=== PATIENT | female | born 1950 | race Caucasian/White ===

== ENCOUNTER 2020-08-11 10:13 | Inpatient (IN) | payer MEDICARE ==
[2020-08-11] MEDS ORDERED: SODIUM CHLORIDE 0.9% 500 ML 500 ML IV STA (10:38)
--- NOTE | 2020-08-11 10:49 | ED ---
General Adult HPI - General Stated complaint: weakness Time Seen by Provider: 08/11/20 10:15 Source: patient, RN notes reviewed, old records reviewed - History of Present Illness Initial comments: This is a 70-year-old female who presents to the emergency department after having fallen in the shower. Patient does not remember the event. Patient denies any head pain patient denies any neck pain. Patient denies any back or chest pain. Patient denies any pain anywhere. Patient does not remember she fell or passed out. Patient denies any difficulty breathing shortness of breath. Patient any recent fever chills or cough. When EMS arrived the patient's pulse ox was in the low 80s and 70s. Patient was placed on oxygen. Currently patient on room air goes into the high 80s. Patient denies any recent vomiting or diarrhea. - Related Data Home Medications Medication Instructions Recorded Confirmed Alendronate Sodium [Fosamax] 70 mg PO Q7D 08/11/20 08/11/20 Atorvastatin [Lipitor] 20 mg PO HS 08/11/20 08/11/20 Cyclobenzaprine [Flexeril] 10 mg PO TID PRN 08/11/20 08/11/20 Dicyclomine [Bentyl] 20 mg PO QID PRN 08/11/20 08/11/20 Losartan [Cozaar] 25 mg PO DAILY 08/11/20 08/11/20 Meloxicam [Mobic] 15 mg PO DAILY 08/11/20 08/11/20 Allergies Allergy/AdvReac Type Severity Reaction Status Date / Time No Known Allergies Allergy Verified 08/11/20 11:28 Review of Systems ROS Statement: Those systems with pertinent positive or pertinent negative responses have been documented in the HPI. ROS Other: All systems not noted in ROS Statement are negative. Past Medical History Past Medical History: Eye Disorder, Osteoarthritis (OA) Additional Past Medical History / Comment(s): BILAT CATARACTS History of Any Multi-Drug Resistant Organisms: None Reported Past Surgical History: Hysterectomy, Joint Replacement Additional Past Surgical History / Comment(s): left knee, REVISION TOTAL LT KNEE 10-11-13 Past Anesthesia/Blood Transfusion Reactions: No Reported Reaction Past Psychological History: No Psychological Hx Reported Past Alcohol Use History: Occasional Additional Past Alcohol Use History / Comment(s): QUIT SMOKING 2006, SMOKED 1 1/2 PPD Past Drug Use History: None Reported - Past Family History Sister(s) Family Medical History: Cancer General Exam - General Exam Comments Initial Comments: GENERAL: Patient is well-developed and well-nourished. Patient is nontoxic and well- hydrated and is in mild distress. ENT: Neck is soft and supple. No significant lymphadenopathy is noted. Oropharynx is clear. Moist mucous membranes. Neck has full range of motion without eliciting any pain. EYES: The sclera were anicteric and conjunctiva were pink and moist. Extraocular movements were intact and pupils were equal round and reactive to light. Eyelids were unremarkable. PULMONARY: Unlabored respirations. Good breath sounds bilaterally. Patient has coarse crackles bilateral lung bases CARDIOVASCULAR: There is a regular rate and rhythm without any murmurs gallops or rubs. ABDOMEN: Soft and nontender with normal bowel sounds. No palpable organomegaly was noted. There is no palpable pulsatile mass. SKIN: Skin is clear with no lesions or rashes and otherwise unremarkable. NEUROLOGIC: Patient is alert and oriented x3. Cranial nerves II through XII are grossly intact. Motor and sensory are also intact. Normal speech, volume and content. Symmetrical smile. MUSCULOSKELETAL: Normal extremities with adequate strength and full range of motion. No lower extremity swelling or edema. No calf tenderness. LYMPHATICS: No significant lymphadenopathy is noted PSYCHIATRIC: Normal psychiatric evaluation. Course Vital Signs 08/11/20 10:40 Temperature 98.4 F Pulse Rate 86 Respiratory 26 H Rate Blood Pressure 171/84 O2 Sat by Pulse 88 L Oximetry Medical Decision Making - Medical Decision Making EKG shows normal sinus rhythm at 79 bpm WA interval 164 QRS is 102 QT interval 424 QTC is 486. Patient's EKG shows no ST segment elevation or depression. X-ray showed some pneumonitis consistent COVID pneumonia. I think the patient off the oxygen and the patient said it 87-88. I spoke with some physicians he agreed to admit the patient to the patient wrote admitting orders - Lab Data Result diagrams: 08/11/20 10:42 08/11/20 10:42 Lab Results 08/11/20 08/11/20 08/11/20 Range/Units 10:42 10:42 10:42 WBC 3.9 (3.8-10.6) k/uL RBC 4.79 (3.80-5.40) m/uL Hgb 13.9 (11.4-16.0) gm/dL Hct 40.6 (34.0-46.0) % MCV 84.7 (80.0-100.0) fL MCH 29.1 (25.0-35.0) pg MCHC 34.3 (31.0-37.0) g/dL RDW 13.1 (11.5-15.5) % Plt Count 226 (150-450) k/uL MPV 7.2 Neutrophils % 72 % Lymphocytes % 16 % Monocytes % 6 % Eosinophils % 0 % Basophils % 1 % Neutrophils # 2.8 (1.3-7.7) k/uL Lymphocytes # 0.6 L (1.0-4.8) k/uL Monocytes # 0.2 (0-1.0) k/uL Eosinophils # 0.0 (0-0.7) k/uL Basophils # 0.1 (0-0.2) k/uL PT 10.0 (9.0-12.0) sec INR 0.9 (<1.2) APTT 19.5 L (22.0-30.0) sec Sodium 141 (137-145) mmol/L Potassium 3.6 (3.5-5.1) mmol/L Chloride 105 (98-107) mmol/L Carbon Dioxide 23 (22-30) mmol/L Anion Gap 13 mmol/L BUN 15 (7-17) mg/dL Creatinine 0.54 (0.52-1.04) mg/dL Est GFR (CKD-EPI)AfAm >90 (>60 ml/min/1.73 sqM) Est GFR (CKD-EPI)NonAf >90 (>60 ml/min/1.73 sqM) Glucose 108 H (74-99) mg/dL Calcium 9.3 (8.4-10.2) mg/dL Magnesium 1.7 (1.6-2.3) mg/dL Total Bilirubin 1.0 (0.2-1.3) mg/dL AST 54 H (14-36) U/L ALT 27 (4-34) U/L Alkaline Phosphatase 101 (38-126) U/L Troponin I (0.000-0.034) ng/mL Total Protein 7.1 (6.3-8.2) g/dL Albumin 4.0 (3.5-5.0) g/dL Influenza Type A (PCR) (Not Detectd) Influenza Type B (PCR) (Not Detectd) RSV (PCR) (Not Detectd) SARS-CoV-2 (PCR) (Not Detectd) 08/11/20 08/11/20 Range/Units 10:42 10:42 WBC (3.8-10.6) k/uL RBC (3.80-5.40) m/uL Hgb (11.4-16.0) gm/dL Hct (34.0-46.0) % MCV (80.0-100.0) fL MCH (25.0-35.0) pg MCHC (31.0-37.0) g/dL RDW (11.5-15.5) % Plt Count (150-450) k/uL MPV Neutrophils % % Lymphocytes % % Monocytes % % Eosinophils % % Basophils % % Neutrophils # (1.3-7.7) k/uL Lymphocytes # (1.0-4.8) k/uL Monocytes # (0-1.0) k/uL Eosinophils # (0-0.7) k/uL Basophils # (0-0.2) k/uL PT (9.0-12.0) sec INR (<1.2) APTT (22.0-30.0) sec Sodium (137-145) mmol/L Potassium (3.5-5.1) mmol/L Chloride (98-107) mmol/L Carbon Dioxide (22-30) mmol/L Anion Gap mmol/L BUN (7-17) mg/dL Creatinine (0.52-1.04) mg/dL Est GFR (CKD-EPI)AfAm (>60 ml/min/1.73 sqM) Est GFR (CKD-EPI)NonAf (>60 ml/min/1.73 sqM) Glucose (74-99) mg/dL Calcium (8.4-10.2) mg/dL Magnesium (1.6-2.3) mg/dL Total Bilirubin (0.2-1.3) mg/dL AST (14-36) U/L ALT (4-34) U/L Alkaline Phosphatase (38-126) U/L Troponin I <0.012 (0.000-0.034) ng/mL Total Protein (6.3-8.2) g/dL Albumin (3.5-5.0) g/dL Influenza Type A (PCR) Not Detected (Not Detectd) Influenza Type B (PCR) Not Detected (Not Detectd) RSV (PCR) Not Detected (Not Detectd) SARS-CoV-2 (PCR) Detected A (Not Detectd) Disposition Clinical Impression: Pneumonia due to COVID-19 virus, Hypoxia, Syncope, Fall Disposition: ADMITTED IP TO THIS HOSP Referrals: None,Stated [Primary Care Provider] - 1-2 days Time of Disposition: 12:05
[2020-08-11 10:54] LABS: Basophils # (A) 0.1 k/uL (0-0.2); Basophils % (A) 1 %; Eosinophils % (A) 0 %; HCT 40.6 % (34.0-46.0); HGB 13.9 gm/dL (11.4-16.0); Lymphocytes # (A) 0.6 k/uL (1.0-4.8); Lymphocytes % (A) 16 %; MCH 29.1 pg (25.0-35.0); MCHC 34.3 g/dL (31.0-37.0); MCV 84.7 fL (80.0-100.0); Mean Platelet Volume 7.2; Monocytes # (A) 0.2 k/uL (0-1.0); Monocytes % (A) 6 %; Neutrophils # (A) 2.8 k/uL (1.3-7.7); Neutrophils % (A) 72 %; Platelet Count 226 k/uL (150-450); RBC 4.79 m/uL (3.80-5.40); RDW 13.1 % (11.5-15.5); WBC 3.9 k/uL (3.8-10.6)
[2020-08-11 11:05] LABS: ALT 27 U/L (4-34); AST 54 U/L (14-36); African American GFR (CKD) >90 (>60 ml/min/1.73 sqM); Alkaline Phosphatase 101 U/L (38-126); Anion Gap 13 mmol/L; Blood Urea Nitrogen 15 mg/dL (7-17); Calcium 9.3 mg/dL (8.4-10.2); Carbon Dioxide 23 mmol/L (22-30); Chloride 105 mmol/L (98-107); Glucose 108 mg/dL (74-99); Magnesium 1.7 mg/dL (1.6-2.3); Non-African American GFR(CKD) >90 (>60 ml/min/1.73 sqM); Potassium 3.6 mmol/L (3.5-5.1); Sodium 141 mmol/L (137-145); Total Protein 7.1 g/dL (6.3-8.2)
[2020-08-11 11:13] LABS: INR 0.9 (<1.2)
--- NOTE | 2020-08-11 11:20 | XR ---
EXAMINATION TYPE: XR chest 1V portable DATE OF EXAM: 08/11/2020 COMPARISON: NONE HISTORY: Shortness of breath TECHNIQUE: Single frontal view of the chest is obtained. FINDINGS: Coarsened interstitium with more localized area of prominence in the right upper lobe. Hea rt size normal. No pleural effusion or pneumothorax. Atherosclerotic change of the aorta. Diffuse ost eopenia noted. IMPRESSION: 1. Suspect chronic interstitial lung disease with superimposed interstitial pneumonitis.
[2020-08-11 11:31] LABS: Partial Thromboplastin Time 19.5 sec (22.0-30.0)
[2020-08-11] MEDS ORDERED: DEXAMETHASONE SOD PHOSPHATE 10 MG/ML 1 ML VIAL IV STA (12:07)
[2020-08-11] MEDS ORDERED: SODIUM CHLORIDE 0.9% 1,000 ML IV ONE (12:10)
[2020-08-11] MEDS ORDERED: ACETAMINOPHEN TAB 325 MG TAB PO PRN (14:33)
[2020-08-11] MEDS ORDERED: DICYCLOMINE 20 MG TAB PO PRN (14:34)
--- NOTE | 2020-08-11 14:46 | P.HPIM ---
History of Present Illness H&P Date: 08/11/20 Chief Complaint: Syncope This is a 70-year-old female with past medical history noted below that presented to the emergency room with a syncopal episode. Patient said that she was in the shower and does not remember what happened. Her at bedside told me that he heard his calling him and then he went upstairs and saw her on the floor. She was completely unresponsive for up to a minute. He did not witness any seizure-like activity. No urine or bowel incontinence. She then started to wake up but was very confused. He called 911 to bring her to the emergency room. Patient herself denies any chest pain or shortness of breath prior to the events. She said that for the past 2-3 weeks she has not been feeling well. She got her COVID-19 first vaccine 3 weeks ago and is been attributing her symptoms to the vaccine. She said that she had a lot of nausea and poor appetite. She also had occasional diarrhea. She denies any fevers or chills. No shortness of breath or cough. Patient denies having any cardiac history and no history of syncopal episode in the past. Patient was evaluated in the emergency room and was found to have positive COVID-19 test. She was hypoxic in the low 80s according to EMS report. In the emergency room she was 88% on room air. Patient will be admitted to the hospital for further management Review of Systems Review of system: 14 points review of systems were obtained and were negative except to what were mentioned in the HPI. Past Medical History Past Medical History: Hyperlipidemia, Hypertension, Osteoarthritis (OA) Additional Past Medical History / Comment(s): Occasional back pain, osteoporosis, UTIs, constipation. History of Any Multi-Drug Resistant Organisms: None Reported Past Surgical History: Hysterectomy, Joint Replacement, Tubal Ligation Additional Past Surgical History / Comment(s): L knee arthroscopy, L total knee then revision, colonoscopy, bilateral cataract removals/lens implants. Past Anesthesia/Blood Transfusion Reactions: No Reported Reaction Smoking Status: Former smoker - Past Family History Sister(s) Family Medical History: Cancer Additional Family Medical History / Comment(s): Pt does not recall type of cancer. Another sister has heart problems with a AL in her 30s. Medications and Allergies Home Medications Medication Instructions Recorded Confirmed Type Alendronate Sodium [Fosamax] 70 mg PO Q7D 08/11/20 08/11/20 History Atorvastatin [Lipitor] 20 mg PO HS 08/11/20 08/11/20 History Cyclobenzaprine [Flexeril] 10 mg PO TID PRN 08/11/20 08/11/20 History Dicyclomine [Bentyl] 20 mg PO QID PRN 08/11/20 08/11/20 History Losartan [Cozaar] 25 mg PO DAILY 08/11/20 08/11/20 History Meloxicam [Mobic] 15 mg PO DAILY 08/11/20 08/11/20 History Allergies Allergy/AdvReac Type Severity Reaction Status Date / Time No Known Allergies Allergy Verified 08/11/20 11:28 Physical Exam Vitals: Vital Signs Temp Pulse Resp BP Pulse Ox 08/11/20 12:26 75 20 151/85 96 08/11/20 10:40 98.4 F 86 26 H 171/84 88 L Intake and Output 08/10/20 08/11/20 08/11/20 22:59 06:59 14:59 Other: Weight 58.967 kg General: The patient is awake and alert, in no distress Eye: there is normal conjunctiva bilaterally. Neck: The neck is supple, there is no JVD. Cardiovascular: Normal S1-S2, no S3-S4, no murmurs. Respiratory: Lungs clear to auscultation bilaterally Gastrointestinal: Abdomen is soft, nontender Musculoskeletal: There is no pedal edema. Neurological:. Speech is normal. Skin: Skin is warm and dry Results CBC & Chem 7: 08/11/20 10:42 08/11/20 10:42 Labs: Abnormal Lab Results - Last 24 Hours (Table) 08/11/20 08/11/20 08/11/20 Range/Units 10:42 10:42 10:42 Lymphocytes # 0.6 L (1.0-4.8) k/uL APTT 19.5 L (22.0-30.0) sec D-Dimer (<0.60) mg/L FEU Glucose 108 H (74-99) mg/dL AST 54 H (14-36) U/L SARS-CoV-2 (PCR) (Not Detectd) 08/11/20 08/11/20 Range/Units 10:42 10:42 Lymphocytes # (1.0-4.8) k/uL APTT (22.0-30.0) sec D-Dimer 1.59 H (<0.60) mg/L FEU Glucose (74-99) mg/dL AST (14-36) U/L SARS-CoV-2 (PCR) Detected A (Not Detectd) Thrombosis Risk Factor Assmnt - Choose All That Apply Any of the Below Risk Factors Present?: Yes Each Factor Represents 1 point: Serious lung disease incl. pneumonia (< 1month) Other Risk Factors: Yes Each Risk Factor Represents 2 Points: Age 61-74 years Other congenital or acquired thrombophilia - If yes, enter type in comment: No Thrombosis Risk Factor Assessment Total Risk Factor Score: 3 Thrombosis Risk Factor Assessment Level: Moderate Risk Assessment and Plan Assessment: This is a 70-year-old female with past medical history noted below with their presented to the emergency room with a syncopal episode. Patient was evaluated in the ER and will be admitted to the hospital for further management of her medical problems noted below. 1. Syncope: Excessive etiology unclear. May be secondary to dehydration and poor by mouth intake I would order orthostatic blood pressure. D-dimer was elevated in the ER, I would order CT angiogram to rule out PE. Echocardiogram ordered to assess cardiac structure and any valvular abnormalities. We'll continue telemetry monitoring. 2. COVID-19 pneumonitis, pulmonology consulted for further evaluation. Continue vitamin C, vitamin D, zinc, and melatonin. Started on Decadron 6 mg daily day #1. I would order inflammatory markers to add on on morning labs 3. Acute hypoxic respiratory failure: On 2 L of oxygen via nasal cannula 4. Essential hypertension: Blood pressure within acceptable range. Resume home dose of losartan 5. DVT prophylaxis with subcu Lovenox
--- NOTE | 2020-08-11 14:49 | P.PN ---
Subjective Progress Note Date: 08/11/20 Advanced Care Planning Active Diagnosis: COVID-19 pneumonitis Persons present: Patient and her Summary: Discussed the patient's goals of care in detail. We discussed the meaning of resuscitation including chest compression, and/or electric shock if needed, and mechanical ventilation. The patient would like to be a full code Time spent: Total time spent face to face in education and discussion directly related to advanced care plannin minutes Objective - Vital Signs Vital signs: Vital Signs Temp 98.4 F 08/11/20 10:40 Pulse 75 08/11/20 12:26 Resp 20 08/11/20 12:26 BP 151/85 08/11/20 12:26 Pulse Ox 96 08/11/20 12:26 Intake & Output 08/10/20 08/11/20 08/11/20 18:59 06:59 18:59 Weight 58.967 kg - Labs CBC & Chem 7: 08/11/20 10:42 08/11/20 10:42 Labs: Abnormal Lab Results - Last 24 Hours (Table) 08/11/20 08/11/20 08/11/20 Range/Units 10:42 10:42 10:42 Lymphocytes # 0.6 L (1.0-4.8) k/uL APTT 19.5 L (22.0-30.0) sec D-Dimer (<0.60) mg/L FEU Glucose 108 H (74-99) mg/dL AST 54 H (14-36) U/L SARS-CoV-2 (PCR) (Not Detectd) 08/11/20 08/11/20 Range/Units 10:42 10:42 Lymphocytes # (1.0-4.8) k/uL APTT (22.0-30.0) sec D-Dimer 1.59 H (<0.60) mg/L FEU Glucose (74-99) mg/dL AST (14-36) U/L SARS-CoV-2 (PCR) Detected A (Not Detectd)
--- NOTE | 2020-08-11 15:54 | CT ---
EXAMINATION TYPE: CT chest angio for PE DATE OF EXAM: 08/11/2020 COMPARISON: None HISTORY: Syncope, hypoxia. CT DLP: 239.3 mGycm CONTRAST: CT chest with contrast and 3D reconstruction with MIP imaging is performed with IV Contrast, patient injected with 100 mL of Isovue 370. Contrast-enhanced CT of the chest was performed through the course of the pulmonary arteries with hakan g and mediastinal window settings submitted. 3D reconstruction with MIP imaging was also performed. PULMONARY ARTERIES: The pulmonary arteries and their major tributaries are patent. I do not see lynn dence for sizable filling defect to suggest pulmonary embolic process. LUNGS: Scattered interstitial infiltrates noted. No evidence for atelectasis. No pulmonary nodule o r mass is detected. No pleural effusion. MEDIASTINUM: Thoracic aorta is of normal caliber,however, evaluation is limited given timing of the contrast bolus. If there is concern for thoracic aortic pathology consider BRIANAN. Correlate clinicall y . The heart is not enlarged. No evidence for mediastinal mass. No mediastinal lymph nodes greater than 1cm. HILAR STRUCTURES: No evidence for mass. No hilar lymph nodes greater than 1 cm. UPPER ABDOMEN: No significant abnormality is seen. IMPRESSION: 1. No evidence for Pulmonary embolism at this time.
[2020-08-11] MEDS: ASCORBIC ACID 500 MG TAB PO SCH (15:57)
[2020-08-11] MEDS: CHOLECALCIFEROL 25 MCG (1000 IU) TABLET PO SCH (15:57)
[2020-08-11] MEDS: ATORVASTATIN 20 MG TAB PO SCH (21:03)
[2020-08-11] MEDS: MELATONIN 5 MG TABLET PO SCH (21:03)
[2020-08-12 03:02] LABS: C Reactive Protein 4.1 mg/dL (0.0-0.8); Ferritin 1535.8 ng/mL (10.0-291.0)
[2020-08-12] MEDS: ALBUTEROL HFA INHALER INHALATION PRN ×3 (08:49→21:24)
[2020-08-12] MEDS: ZINC SULFATE 220 MG CAP PO SCH (09:02)
[2020-08-12] MEDS: LOSARTAN 25 MG TAB PO SCH ×2 (09:02→09:05)
[2020-08-12] MEDS: ENOXAPARIN 40 MG/0.4 ML SYRINGE SQ SCH (09:02)
[2020-08-12] MEDS: MELOXICAM 7.5 MG TAB PO SCH (09:02)
[2020-08-12] MEDS: dexAMETHasone 2 MG TAB PO SCH (09:02)
[2020-08-12] MEDS: ASCORBIC ACID 500 MG TAB PO SCH (09:02)
[2020-08-12] MEDS: CHOLECALCIFEROL 25 MCG (1000 IU) TABLET PO SCH (09:02)
[2020-08-12 09:57] VITALS: BMI 23.8
--- NOTE | 2020-08-12 12:00 | ECHOF ---
Referral Reason:syncope MEASUREMENTS -------- HEIGHT: 157.5 cm WEIGHT: 59.0 kg BP: RVIDd: 2.8 cm (< 3.3) IVSd: 1.3 cm (0.6 - 1.1) LVIDd: 3.5 cm (3.9 - 5.3) LVPWd: 1.2 cm (0.6 - 1.1) IVSs: 1.9 cm LVIDs: 1.5 cm LVPWs: 1.7 cm LAESV Index (A-L): 15.08 ml/m Ao Diam: 3.9 cm (2.0 - 3.7) AV Cusp: 2.2 cm (1.5 - 2.6) LA Diam: 2.4 cm (2.7 - 3.8) MV EXCURSION: 14.577 mm (> 18.000) MV EF SLOPE: 83 mm/s (70 - 150) EPSS: 0.3 cm MV E Alfonso: 0.79 m/s MV DecT: 187 ms MV A Alfonso: 0.78 m/s MV E/A Ratio: 1.01 RAP: 5.00 mmHg RVSP: 10.65 mmHg FINDINGS -------- This was a technically good study. The left ventricular size is normal. There is mild concentric left ventricular hypertrophy. Overa ll left ventricular systolic function is normal with, an EF between 55 - 60 %. The diastolic fillin g pattern is normal for the age of the patient 12.80. The right ventricle is normal in size. The left atrial size is normal. Normal LA size by volume 22+/-6 ml/m2. The right atrial size is normal. The aortic valve is trileaflet and appears structurally normal. The mitral valve is normal. Mild mitral regurgitation is present. The tricuspid valve appears structurally normal. Trace tricuspid regurgitation present. Right nicole tricular systolic pressure is normal at < 35 mmHg. There is no pulmonic regurgitation present. The aortic root size is normal. Normal inferior vena cava with normal inspiratory collapse consistent with estimated right atrial pre ssure of 5 mmHg. There is no pericardial effusion. CONCLUSIONS -------- 1. The left ventricular size is normal. 2. There is mild concentric left ventricular hypertrophy. 3. Overall left ventricular systolic function is normal with, an EF between 55 - 60 %. 4. The diastolic filling pattern is normal for the age of the patient 12.80 5. Mild mitral regurgitation is present. 6. Trace tricuspid regurgitation present. 7. There is no pericardial effusion. DEDICATED DRIVER: Hayde Coffman RDCS
--- NOTE | 2020-08-12 14:54 | P.CNPUL ---
History of Present Illness Consult date: 08/12/20 Requesting physician: Sruthi Cummings Reason for consult: dyspnea, hypoxemia Chief complaint: Syncopal episode, hypoxemia, COVID-19 History of present illness: 70-year-old pleasant female patient with past medical history of hypertension, osteoarthritis, previous history of hysterectomy, and previous smoking history who came into the emergency department on 08/11/2020 after having fallen in the shower. Patient does not remember the event, she had apparently struck her head in the shower, but does not remember feeling lightheaded prior to getting into the shower. Denied any cough, or difficulty breathing. Denied any recent fever chills. Patient denied any head or neck pain. She reports not feeling well for 3 weeks prior to this incident, with symptoms of feeling weak, lack of appetite, but she did not test for COVID-19 and she did not suspect COVID-19 infection. No reported history of recent vomiting or diarrhea. She did have her first Pfizer vaccine around 3 weeks ago. Her chest x-ray in the emergency department showed suspected chronic interstitial lung disease with superimposed interstitial pneumonitis. Her COVID-19 PCR was positive, and CBC showed lymphopenia with lymphocyte count of 0.6, d-dimer was 1.59, electrolytes and renal profile were unremarkable, ferritin level was 1535, AST was 54, ALT and alkaline phosphatase were within normal limits, LDH was 425, troponin was less than 0.012, CRP was 4.1, influenza and RSV screens were negative. CTA chest showed no evidence of pulmonary embolism. And scattered interstitial infiltrates. Patient is currently on 3 L of oxygen and the pulse ox between 89- 92%, she is breathing comfortably, lung sounds revealed diffuse coarse crackles at bilateral bases, she's had no fevers, echocardiogram has been completed s howing EF 50-55-60%, mild MR, trace TR, no pericardial effusion. She was started on Decadron 6 mg daily, prophylactic Lovenox. Review of Systems All systems: negative Constitutional: Reports fatigue, Reports malaise, Reports weakness, Denies chills, Denies fever Eyes: denies blurred vision, denies pain Ears, nose, mouth and throat: Denies headache, Denies sore throat Cardiovascular: Denies chest pain, Denies shortness of breath Respiratory: Reports dyspnea, Denies cough Gastrointestinal: Denies abdominal pain, Denies diarrhea, Denies nausea, Denies vomiting Genitourinary: Denies dysuria, Denies hematuria Musculoskeletal: Denies myalgias Integumentary: Denies pruritus, Denies rash Neurological: Reports syncope, Denies numbness, Denies weakness Psychiatric: Denies anxiety, Denies depression Endocrine: Denies fatigue, Denies weight change Past Medical History Past Medical History: Hyperlipidemia, Hypertension, Osteoarthritis (OA) Additional Past Medical History / Comment(s): Occasional back pain, osteoporosis, UTIs, constipation. History of Any Multi-Drug Resistant Organisms: None Reported Past Surgical History: Hysterectomy, Joint Replacement, Tubal Ligation Additional Past Surgical History / Comment(s): L knee arthroscopy, L total knee then revision, colonoscopy, bilateral cataract removals/lens implants. Past Anesthesia/Blood Transfusion Reactions: No Reported Reaction Smoking Status: Former smoker - Past Family History Sister(s) Family Medical History: Cancer Additional Family Medical History / Comment(s): Pt does not recall type of cancer. Another sister has heart problems with a DE in her 30s. Medications and Allergies Home Medications Medication Instructions Recorded Confirmed Type Alendronate Sodium [Fosamax] 70 mg PO Q7D 08/11/20 08/11/20 History Atorvastatin [Lipitor] 20 mg PO HS 08/11/20 08/11/20 History Cyclobenzaprine [Flexeril] 10 mg PO TID PRN 08/11/20 08/11/20 History Dicyclomine [Bentyl] 20 mg PO QID PRN 08/11/20 08/11/20 History Losartan [Cozaar] 25 mg PO DAILY 08/11/20 08/11/20 History Meloxicam [Mobic] 15 mg PO DAILY 08/11/20 08/11/20 History Allergies Allergy/AdvReac Type Severity Reaction Status Date / Time No Known Allergies Allergy Verified 08/11/20 11:28 Physical Exam Vitals: Vital Signs Temp Pulse Resp BP BP BP Pulse Ox 08/12/20 10:05 98.3 F 50 L 18 122/60 89 L 08/12/20 08:50 90 L 08/12/20 06:06 97.6 F 47 L 16 112/50 89 L 08/12/20 02:00 97.6 F 42 L 16 101/54 91 L 08/11/20 22:09 97.8 F 47 L 18 107/65 92 L 08/11/20 20:00 47 L 18 08/11/20 17:18 98.1 F 55 L 16 151/81 153/78 148/76 91 L Intake and Output 08/11/20 08/12/20 08/12/20 22:59 06:59 14:59 Intake Total 600 Balance 600 Intake: Intake, IV Titration 600 Amount Sodium Chloride 0.9% 1, 600 000 ml @ 75 mls/hr IV . [id number] ONE Rx#:[id number] Other: Voiding Method Toilet # Voids 2 Weight 58.967 kg GENERAL EXAM: Alert, very pleasant, 70-year-old white female on 4 L of oxygen and the pulse ox between 89-92% comfortable in no apparent distress. HEAD: Normocephalic/atraumatic. EYES: Normal reaction of pupils, equal size. Conjunctiva pink, sclera white. NOSE: Clear with pink turbinates. THROAT: No erythema or exudates. NECK: No masses, no JVD, no thyroid enlargement, no adenopathy. CHEST: No chest wall deformity. Symmetrical expansion. LUNGS: Equal air entry with bibasilar crackles CVS: Regular rate and rhythm, normal S1 and S2, no gallops, no murmurs, no rubs ABDOMEN: Soft, nontender. No hepatosplenomegaly, normal bowel sounds, no guarding or rigidity. EXTREMITIES: No clubbing, no edema, no cyanosis, 2+ pulses and upper and lower extremities. MUSCULOSKELETAL: Muscle strength and tone normal. SPINE: No scoliosis or deformity SKIN: No rashes CENTRAL NERVOUS SYSTEM: Alert and oriented -3. No focal deficits, tone is normal in all 4 extremities. PSYCHIATRIC: Alert and oriented -3. Appropriate affect. Intact judgment and i nsight. Results - Laboratory Findings CBC and BMP: 08/11/20 10:42 08/11/20 10:42 PT/INR, D-dimer PT 10.0 sec (9.0-12.0) 08/11/20 10:42 INR 0.9 (<1.2) 08/11/20 10:42 D-Dimer 1.59 mg/L FEU (<0.60) H 08/11/20 10:42 Abnormal lab findings: Abnormal Labs 08/11/20 08/11/20 08/11/20 10:42 10:42 10:42 Lymphocytes # 0.6 L APTT 19.5 L D-Dimer Glucose 108 H Ferritin AST 54 H Lactate Dehydrogenase C-Reactive Protein SARS-CoV-2 (PCR) 08/11/20 08/11/20 08/11/20 10:42 10:42 10:42 Lymphocytes # APTT D-Dimer 1.59 H Glucose Ferritin 1535.8 H AST Lactate Dehydrogenase 425 H C-Reactive Protein 4.1 H SARS-CoV-2 (PCR) Detected A - Diagnostic Findings Chest x-ray: report reviewed, image reviewed CT scan - chest: report reviewed, image reviewed Additional studies: EKG reviewed Assessment and Plan Plan: Assessment: #1. Acute hypoxic respiratory failure related to acute COVID-19 pneumonia, first onset of symptoms is 3 weeks ago. Outside the window for Remdesivir. Status post first dose of Pfizer vaccine 3 weeks ago #2. Syncopal episode at home #3. Elevated d-dimer, no evidence of pulmonary embolism on the CTA chest #4. Hypertension #5. Hyperlipidemia #6. Osteoarthritis #7. Former smoker Plan: Continue Decadron, continue prophylactic Lovenox Continue Polyvitamin's Outside the window for Remdesivir Continue to follow clinical course and make further recommendations Maintain safety precautions I performed a history & physical examination of the patient and discussed their management with my nurse practitioner, Rebecca Andrade. I reviewed the nurse practitioner's note and agree with the documented findings and plan of care. Lung sounds are positive for diffuse wheezes throughout the lung hughes. The findings and the impression was discussed with the patient. I attest to the do cumentation by the nurse practitioner. Time with Patient: Greater than 30
--- NOTE | 2020-08-12 15:56 | P.PN ---
Subjective Progress Note Date: 08/12/20 (Delayed charting seen at 1045) Principal diagnosis: Syncope Patient is a 70-year-old female with arthritis, hypertension, and dyslipidemia who presented to the emergency room with a syncopal episode. She underwent an extensive evaluation in the emergency department. On arrival she was hypoxic to 88% on room air. Her vitals were otherwise unremarkable. Orthostatics were neg ative. Laboratory analysis that d-dimer of 1.59, ferritin 1535, COVID testing was positive. Chest x-ray showed suspected interstitial lung disease a super imposed interstitial pneumonitis. CT of the chest was negative for pulmonary embolism. Echocardiogram showed an ejection fraction of 55-60% with no significant valvular dysfunction. She was seen by pulmonary who agreed with continuing Decadron and Lovenox as well as vitamins. Outside the window for Remdesivir. Patient seen and examined at bedside. She is feeling well. No dizziness, shortness of breath, chest pain, nausea, or vomiting. General: non toxic, no distress, appears at stated age Derm: warm, dry Head: atraumatic, normocephalic, symmetric Eyes: EOMI, no lid lag, anicteric sclera Mouth: no lip lesion, mucus membranes moist Cardiovascular: S1S2 reg, no murmur, positive posterior tibial pulse bilateral, Lungs: Course breath sounds bilateral, no rhonchi, no rales , no accessory muscle use Abdominal: soft, nontender to palpation, no guarding, no appreciable organomegaly Ext: no gross muscle atrophy, no edema, no contractures Neuro: CN II-XI grossly intact, no focal neuro deficits Psych: Alert, oriented, appropriate affect COVID-19 pneumonitis with acute hypoxic respiratory failure -Decadron -Vitamin C, vitamin D, zinc -Pulmonary recommendations -Wean O2 as able -Out of the window for him to severe with onset of symptoms 3 weeks ago Syncopal episode -Orthostatic negative -Echocardiogram without significant systolic or valvular dysfunction -Bradycardia, one 2.4 second positive on telemetry Hypertension, controlled -Continue with Cozaar -Follow blood pressures Dyslipidemia -Statin therapy Osteoarthritis -Tylenol/Mobic DVT prophylaxis: Lovenox Discussed with: Patient, nursing Anticipated discharge: 1-[address]: home A total of 35 minutes was spent on the care of this complex patient more than 50% of the time was spent in counseling and care coordination. Objective - Vital Signs Vital signs: Vital Signs Temp 97.5 F L 08/12/20 14:21 Pulse 66 08/12/20 14:21 Resp 17 08/12/20 14:21 BP 133/71 08/12/20 14:21 Pulse Ox 91 L 08/12/20 14:21 Intake & Output 08/11/20 08/12/20 08/12/20 18:59 06:59 18:59 Intake Total 600 Balance 600 Weight 58.967 kg 58.967 kg Intake: Intake, IV Titration 600 Amount Sodium Chloride 0.9% 1, 600 000 ml @ 75 mls/hr IV . [id number] ONE Rx#:[id number] Other: Voiding Method Toilet # Voids 2 - Labs CBC & Chem 7: 08/11/20 10:42 08/11/20 10:42 Labs: Abnormal Lab Results - Last 24 Hours (Table) 08/11/20 Range/Units 10:42 Ferritin 1535.8 H (10.0-291.0) ng/mL Lactate Dehydrogenase 425 H (120-246) U/L C-Reactive Protein 4.1 H (0.0-0.8) mg/dL
[2020-08-12] MEDS: ATORVASTATIN 20 MG TAB PO SCH (20:37)
[2020-08-12] MEDS: MELATONIN 5 MG TABLET PO SCH (20:37)
[2020-08-13] MEDS: ASCORBIC ACID 500 MG TAB PO SCH (07:26)
[2020-08-13] MEDS: CHOLECALCIFEROL 25 MCG (1000 IU) TABLET PO SCH (07:26)
[2020-08-13] MEDS: dexAMETHasone 2 MG TAB PO SCH (07:26)
[2020-08-13] MEDS: ZINC SULFATE 220 MG CAP PO SCH (07:27)
[2020-08-13] MEDS: MELOXICAM 7.5 MG TAB PO SCH (07:27)
[2020-08-13] MEDS: ENOXAPARIN 40 MG/0.4 ML SYRINGE SQ SCH (07:27)
[2020-08-13] MEDS: LOSARTAN 25 MG TAB PO SCH (07:27)
[2020-08-13 08:22] LABS: D-Dimer 0.7 mg/L FEU (<0.60)
[2020-08-13 10:16] LABS: Prothrombin Time 10.5 sec (9.0-12.0)
[2020-08-13] MEDS: ALBUTEROL HFA INHALER INHALATION PRN (11:34)
[2020-08-13 11:43] LABS: HCT 33.9 % (37.2-46.3); HGB 11.1 g/dL (12.0-15.0); MCH 28.2 pg (27.0-32.0); MCHC 32.7 g/dL (32.0-37.0); Mean Platelet Volume 10.3 fL (9.5-12.2); Platelet Count 274 X 10*3/uL (140-440); RBC 3.94 X 10*6/uL (4.10-5.20); RDW 13.5 % (11.5-14.5); WBC 7.94 X 10*3/uL (4.50-10.00)
[2020-08-13 12:15] LABS: African American GFR (CKD) 105.5 (60.0-200.0); Albumin 3.5 g/dL (3.80-4.90); Albumin/Globulin Ratio 1.3 (1.60-3.17); Anion Gap 7.9 mmol/L (4.00-12.00); BUN/Creat Ratio 38.33 Ratio (12.00-20.00); C Reactive Protein 1.1 mg/dL (0.0-0.8); Calcium 8.4 mg/dL (8.7-10.3); Carbon Dioxide 25.1 mmol/L (21.6-31.8); Globulin 2.7 g/dL (1.6-3.3); Non-African American GFR(CKD) 91.1 (60.0-200.0); Potassium 3.7 mmol/L (3.5-5.5); Total Bilirubin 0.6 mg/dL (0.3-1.2); Total Protein 6.2 g/dL (6.2-8.2)
[2020-08-13 13:52] LABS: Hemoglobin A1C 6.3 % (4.0-6.0)
--- NOTE | 2020-08-13 14:36 | P.PN ---
Subjective Progress Note Date: 08/13/20 Principal diagnosis: Syncopal episode, hypoxemia, COVID-19 pneumonia 70-year-old pleasant female patient with past medical history of hypertension, osteoarthritis, previous history of hysterectomy, and previous smoking history who came into the emergency department on 08/11/2020 after having fallen in the shower. Patient does not remember the event, she had apparently struck her head in the shower, but does not remember feeling lightheaded prior to getting into the shower. Denied any cough, or difficulty breathing. Denied any recent fever chills. Patient denied any head or neck pain. She reports not feeling well for 3 weeks prior to this incident, with symptoms of feeling weak, lack of appetite, but she did not test for COVID-19 and she did not suspect COVID-19 infection. No reported history of recent vomiting or diarrhea. She did have her first Pfizer vaccine around 3 weeks ago. Her chest x-ray in the emergency department showed suspected chronic interstitial lung disease with superimposed interstitial pneumonitis. Her COVID-19 PCR was positive, and CBC showed lymphopenia with lymphocyte count of 0.6, d-dimer was 1.59, electrolytes and renal profile were unremarkable, ferritin level was 1535, AST was 54, ALT and alkaline phosphatase were within normal limits, LDH was 425, troponin was less than 0.012, CRP was 4.1, influenza and RSV screens were negative. CTA chest showed no evidence of pulmonary embolism. And scattered interstitial infiltrate s. Patient is currently on 3 L of oxygen and the pulse ox between 89-92%, she is breathing comfortably, lung sounds revealed diffuse coarse crackles at bilateral bases, she's had no fevers, echocardiogram has been completed showing EF 50-55-60%, mild MR, trace TR, no pericardial effusion. She was started on Decadron 6 mg daily, prophylactic Lovenox. On 08/13/2020 patient seen in follow-up on medical surgical floor. Currently on 3 L of oxygen and the pulse ox of 95%, this can probably be further weaned, she denies any respiratory complaints, no shortness of breath or cough, her vital signs have been stable, lung sounds reveal some diffuse crackles at the bases, but no break complaints still at this time. No chest discomfort, no fever, no cough. No further syncopal episodes, patient remains on Decadron 6 blood gram daily, she is on vitamins, and prophylactic Lovenox. Objective - Vital Signs Vital signs: Vital Signs Temp 96.9 F L 08/13/20 09:58 Pulse 52 L 08/13/20 09:58 Resp 16 08/13/20 09:58 BP 143/67 08/13/20 09:58 Pulse Ox 95 08/13/20 09:58 Intake & Output 08/12/20 08/13/20 08/13/20 18:59 06:59 18:59 Weight 58.967 kg Other: Voiding Method Toilet # Voids 2 2 2 - Exam GENERAL EXAM: Alert, very pleasant, 70-year-old white female on 3 L of oxygen a pulse ox of 95% comfortable in no apparent distress. HEAD: Normocephalic/atraumatic. EYES: Normal reaction of pupils, equal size. Conjunctiva pink, sclera white. NOSE: Clear with pink turbinates. THROAT: No erythema or exudates. NECK: No masses, no JVD, no thyroid enlargement, no adenopathy. CHEST: No chest wall deformity. Symmetrical expansion. LUNGS: Equal air entry with diffuse crackles CVS: Regular rate and rhythm, normal S1 and S2, no gallops, no murmurs, no rubs ABDOMEN: Soft, nontender. No hepatosplenomegaly, normal bowel sounds, no guarding or rigidity. EXTREMITIES: No clubbing, no edema, no cyanosis, 2+ pulses and upper and lower extremities. MUSCULOSKELETAL: Muscle strength and tone normal. SPINE: No scoliosis or deformity SKIN: No rashes CENTRAL NERVOUS SYSTEM: Alert and oriented -3. No focal deficits, tone is normal in all 4 extremities. PSYCHIATRIC: Alert and oriented -3. Appropriate affect. Intact judgment and insight. - Labs CBC & Chem 7: 08/13/20 07:06 08/13/20 07:06 Labs: Abnormal Lab Results - Last 24 Hours (Table) 08/13/20 08/13/20 08/13/20 Range/Units 07:06 07:06 07:06 RBC 3.94 L (4.10-5.20) X 10*6/uL Hgb 11.1 L (12.0-15.0) g/dL Hct 33.9 L (37.2-46.3) % D-Dimer 0.70 H (<0.60) mg/L FEU BUN/Creatinine Ratio (12.00-20.00) Ratio Glucose (70-110) mg/dL Hemoglobin A1c 6.3 H (4.0-6.0) % Calcium (8.7-10.3) mg/dL C-Reactive Protein (0.0-0.8) mg/dL Albumin (3.80-4.90) g/dL Albumin/Globulin Ratio (1.60-3.17) g/dL 08/13/20 Range/Units 07:06 RBC (4.10-5.20) X 10*6/uL Hgb (12.0-15.0) g/dL Hct (37.2-46.3) % D-Dimer (<0.60) mg/L FEU BUN/Creatinine Ratio 38.33 H (12.00-20.00) Ratio Glucose 137 H (70-110) mg/dL Hemoglobin A1c (4.0-6.0) % Calcium 8.4 L (8.7-10.3) mg/dL C-Reactive Protein 1.1 H (0.0-0.8) mg/dL Albumin 3.50 L (3.80-4.90) g/dL Albumin/Globulin Ratio 1.30 L (1.60-3.17) g/dL Assessment and Plan Plan: Assessment: #1. Acute hypoxic respiratory failure related to acute COVID-19 pneumonia, first onset of symptoms is 3 weeks ago. Outside the window for Remdesivir. Status post first dose of Pfizer vaccine 3 weeks ago #2. Syncopal episode at home #3. Elevated d-dimer, no evidence of pulmonary embolism on the CTA chest #4. Hypertension #5. Hyperlipidemia #6. Osteoarthritis #7. Former smoker Plan: Patient has been stable from pulmonary perspective although still requiring some supplemental oxygen, Continue Decadron, continue prophylactic Lovenox Weaning FiO2 to keep O2 sats ration is at or above 90% She is breathing comfortably, no cough, no pulmonary symptoms No further syncopal episodes If remains stable from pulmonary perspective she may be considered for discharge home once cleared by other consultants and medicine I performed a history & physical examination of the patient and discussed their management with my nurse practitioner, Rebecca Andrade. I reviewed the nurse practitioner's note and agree with the documented findings and plan of care. Lung sounds are positive for diffuse wheezes throughout the lung hughes. The findings and the impression was discussed with the patient. I attest to the documentation by the nurse practitioner. Time with Patient: Less than 30
--- NOTE | 2020-08-13 14:39 | P.PN ---
Subjective Progress Note Date: 08/13/20 (deleayd charting seen at 0750) Principal diagnosis: Syncope Patient is a 70-year-old female with arthritis, hypertension, and dyslipidemia who presented to the emergency room with a syncopal episode. She underwent an extensive evaluation in the emergency department. On arrival she was hypoxic to 88% on room air. Her vitals were otherwise unremarkable. Orthostatics were neg ative. Laboratory analysis that d-dimer of 1.59, ferritin 1535, COVID testing was positive. Chest x-ray showed suspected interstitial lung disease a super imposed interstitial pneumonitis. CT of the chest was negative for pulmonary embolism. Echocardiogram showed an ejection fraction of 55-60% with no significant valvular dysfunction. She was seen by pulmonary who agreed with continuing Decadron and Lovenox as well as vitamins. Outside the window for Remdesivir. She can have bradycardia overnight on 08/13 with several pauses greater than 2.3 seconds and cardiology was consulted. Patient seen and examined at bedside. She continues to feel well. No chest pain, shortness breath, nausea, vomiting, diarrhea, still feeling slightly tired, no coughing. General: non toxic, no distress, appears at stated age Derm: warm, dry Head: atraumatic, normocephalic, symmetric Eyes: EOMI, no lid lag, anicteric sclera Mouth: no lip lesion, mucus membranes moist Cardiovascular: S1S2 reg, no murmur, positive posterior tibial pulse bilateral, Lungs: Course breath sounds bilateral, no rhonchi, no rales , no accessory muscle use Abdominal: soft, nontender to palpation, no guarding, no appreciable organomegaly Ext: no gross muscle atrophy, no edema, no contractures Neuro: CN II-XI grossly intact, no focal neuro deficits Psych: Alert, oriented, appropriate affect COVID-19 pneumonitis with acute hypoxic respiratory failure -Decadron -Vitamin C, vitamin D, zinc -Pulmonary recommendations -Wean O2 as able -Out of the window remdesivir with onset of symptoms 3 weeks ago Syncopal episode with nocturnal bradycardia and pauses -Orthostatic negative -Echocardiogram without significant systolic or valvular dysfunction -Bradycardia, multiple pauses on telemetry -Consult cardiology Hypertension, controlled -Continue with Cozaar -Follow blood pressures Dyslipidemia -Statin therapy Osteoarthritis -Tylenol/Mobic Anticipate home in a.m. with home O2. DVT prophylaxis: Lovenox Discussed with: Patient, nursing Anticipated discharge: Home in a.m. Anticipated discharge place: home A total of 35 minutes was spent on the care of this complex patient more than 50% of the time was spent in counseling and care coordination. Objective - Vital Signs Vital signs: Vital Signs Temp 96.9 F L 08/13/20 09:58 Pulse 52 L 08/13/20 09:58 Resp 16 08/13/20 09:58 BP 143/67 08/13/20 09:58 Pulse Ox 95 08/13/20 09:58 Intake & Output 08/12/20 08/13/20 08/13/20 18:59 06:59 18:59 Weight 58.967 kg Other: Voiding Method Toilet # Voids 2 2 2 - Labs CBC & Chem 7: 08/13/20 07:06 08/13/20 07:06 Labs: Abnormal Lab Results - Last 24 Hours (Table) 08/13/20 08/13/20 08/13/20 Range/Units 07:06 07:06 07:06 RBC 3.94 L (4.10-5.20) X 10*6/uL Hgb 11.1 L (12.0-15.0) g/dL Hct 33.9 L (37.2-46.3) % D-Dimer 0.70 H (<0.60) mg/L FEU BUN/Creatinine Ratio (12.00-20.00) Ratio Glucose (70-110) mg/dL Hemoglobin A1c 6.3 H (4.0-6.0) % Calcium (8.7-10.3) mg/dL C-Reactive Protein (0.0-0.8) mg/dL Albumin (3.80-4.90) g/dL Albumin/Globulin Ratio (1.60-3.17) g/dL 08/13/20 Range/Units 07:06 RBC (4.10-5.20) X 10*6/uL Hgb (12.0-15.0) g/dL Hct (37.2-46.3) % D-Dimer (<0.60) mg/L FEU BUN/Creatinine Ratio 38.33 H (12.00-20.00) Ratio Glucose 137 H (70-110) mg/dL Hemoglobin A1c (4.0-6.0) % Calcium 8.4 L (8.7-10.3) mg/dL C-Reactive Protein 1.1 H (0.0-0.8) mg/dL Albumin 3.50 L (3.80-4.90) g/dL Albumin/Globulin Ratio 1.30 L (1.60-3.17) g/dL
[2020-08-13] MEDS: MELATONIN 5 MG TABLET PO SCH (20:44)
[2020-08-13] MEDS: ATORVASTATIN 20 MG TAB PO SCH (20:44)
[2020-08-14 07:12] LABS: HCT 35.7 % (34.0-46.0); HGB 12.3 gm/dL (11.4-16.0); MCH 29.1 pg (25.0-35.0); MCHC 34.3 g/dL (31.0-37.0); MCV 84.8 fL (80.0-100.0); Mean Platelet Volume 7.3; Platelet Count 323 k/uL (150-450); RBC 4.21 m/uL (3.80-5.40); RDW 13.3 % (11.5-15.5); WBC 6.4 k/uL (3.8-10.6)
[2020-08-14] MEDS: ENOXAPARIN 40 MG/0.4 ML SYRINGE SQ SCH (08:14)
[2020-08-14] MEDS: ZINC SULFATE 220 MG CAP PO SCH (08:14)
[2020-08-14] MEDS: CHOLECALCIFEROL 25 MCG (1000 IU) TABLET PO SCH (08:14)
[2020-08-14] MEDS: dexAMETHasone 2 MG TAB PO SCH (08:14)
[2020-08-14] MEDS: ASCORBIC ACID 500 MG TAB PO SCH (08:14)
[2020-08-14] MEDS: MELOXICAM 7.5 MG TAB PO SCH (08:15)
[2020-08-14] MEDS: LOSARTAN 25 MG TAB PO SCH (08:25)
--- NOTE | 2020-08-14 09:22 | P.CRDCN ---
History of Present Illness History of present illness: HISTORY OF PRESENTING ILLNESS This is a pleasant 70-year-old female past medical history significant for hypertension, dyslipidemia and former nicotine dependence. She denies prior history of coronary artery disease and does not follow in the office with a auto body detailer. We have been asked to see in consultation for bradycardia. She states for the previous 2 weeks she has noticed increase fatigue and generalized weakness. He was managing at home without incident until a few days ago when she was taking a hot shower and she passed out. According to the patient she doesn't recall the events leading up to this. Apparently she called out to her and when he came in she was on the floor of the shower. She denies having symptoms of chest discomfort or feeling dizzy prior to her thereafter. On admission she was found to be Covid positive. Echocardiogram obtained reveals preserved LV systolic function with ejection fraction 55-60% with mild mitral regurgitation noted. Telemetry tracings reveal at night she is having episodes of sinus bradycardia and PACs. She is asymptomatic and sleeping at the time. She states she has never passed out before. She is usually quite active. DIAGNOSTICS EKG reveals sinus mechanism with incomplete right bundle branch block, nonspecific T-wave abnormalities noted in the anterior leads and poor R-wave progression. Telemetry tracings indicate an as mechanism with episodes of sinus bradycardia at night and APCs.. Chest xray essential lung disease with superimposed interstitial pneumonitis. CTA negative for PE. Laboratory reviewed, CBC unremarkable, d-dimer on admission 1.50 9 repeat 0.7, sodium 141, potassium 3.7, creatinine 0.6, magnesium 1.7, troponin negative 1, CRP 1.1. Current cardiac medications include losartan 25 mg daily and atorvastatin 20 mg daily. REVIEW OF SYSTEMS At the time of my exam: CONSTITUTIONAL: Denies fever or chills. CARDIOVASCULAR: Denies chest pain, shortness of breath, orthopnea, PND or palpitations. RESPIRATORY: Denies cough. GASTROINTESTINAL: Denies abdominal pain, diarrhea, constipation, nausea or vomiting. MUSCULOSKELETAL: Denies myalgias. NEUROLOGIC: Denies numbness, tingling, headacbe or weakness. ENDOCRINE: Denies fatigue, weight change, polydipsia or polyurina. GENITOURINARY: Denies burning, hematuria or urgency with micturation. HEMATOLOGIC: Denies history of anemia or bleeding. PHYSICAL EXAMINATION Blood pressure 135/69 heart rate 45 afebrile and maintaining oxygen saturation on nasal cannula. CONSTITUTIONAL: No apparent distress. HEENT: Head is normocephalic. Pupils are equal, round. Sclerae anicteric. Mucous membranes of the mouth are moist. No JVD. No carotid bruit. CHEST EXAMINATION: Lungs are clear to auscultation. No chest wall tenderness is noted on palpation or with deep breathing. HEART EXAMINATION: Regular rate and rhythm. S1, S2 heard. No murmurs, gallops or rub. ABDOMEN: Soft, nontender. Positive bowel sounds. EXTREMITIES: 2+ peripheral pulses, no lower extremity edema and no calf tenderness. NEUROLOGIC EXAMINATION: Patient is awake, alert and oriented x3. ASSESSMENT Syncope COVID-19 Hypoxia Sinus bradycardia, asymptomatic Hypertension Dyslipidemia Former nicotine dependence PLAN Syncope while in the shower could be related to vasovagal spell however difficult to exactly know as she was not monitor at the time. Sinus bradycardia noted on telemetry while sleeping could be related to obstructive sleep apnea. Echocardiogram reviewed. Would recommend outpatient event monitoring. The patient states she is in the process of moving to [place] but is willing to wear an event monitor and mail it back as directed. She has been advised to follow- up with a auto body detailer once she establishes in [place] and records can be sent there. Check TSH. Management of COVID-19 per the primary care team. Thank you kindly for this consultation. Nurse Practitioner note has been reviewed, I agree with a documented findings and plan of care. Patient was seen and examined. Past Medical History Past Medical History: Hyperlipidemia, Hypertension, Osteoarthritis (OA) Additional Past Medical History / Comment(s): Occasional back pain, osteoporosis, UTIs, constipation. History of Any Multi-Drug Resistant Organisms: None Reported Past Surgical History: Hysterectomy, Joint Replacement, Tubal Ligation Additional Past Surgical History / Comment(s): L knee arthroscopy, L total knee then revision, colonoscopy, bilateral cataract removals/lens implants. Past Anesthesia/Blood Transfusion Reactions: No Reported Reaction Smoking Status: Former smoker - Past Family History Sister(s) Family Medical History: Cancer Additional Family Medical History / Comment(s): Pt does not recall type of cancer. Another sister has heart problems with a NH in her 30s. Medications and Allergies Home Medications Medication Instructions Recorded Confirmed Type Alendronate Sodium [Fosamax] 70 mg PO Q7D 08/11/20 08/11/20 History Atorvastatin [Lipitor] 20 mg PO HS 08/11/20 08/11/20 History Cyclobenzaprine [Flexeril] 10 mg PO TID PRN 08/11/20 08/11/20 History Dicyclomine [Bentyl] 20 mg PO QID PRN 08/11/20 08/11/20 History Losartan [Cozaar] 25 mg PO DAILY 08/11/20 08/11/20 History Meloxicam [Mobic] 15 mg PO DAILY 08/11/20 08/11/20 History Albuterol Inhaler [Ventolin Hfa 2 puff INHALATION RT-QID PRN #1 08/14/20 Rx Inhaler] inhaler Cholecalciferol [Vitamin D3 (25 100 mcg PO DAILY #0 tablet 08/14/20 Rx Mcg = 1000 Iu)] Dexamethasone [Decadron] 6 mg PO DAILY #6 tablet 08/14/20 Rx Allergies Allergy/AdvReac Type Severity Reaction Status Date / Time No Known Allergies Allergy Verified 08/11/20 11:28 Physical Exam Vitals: Vital Signs Temp Pulse Resp BP BP BP Pulse Ox 08/14/20 05:30 97.7 F 45 L 18 135/69 92 L 08/14/20 02:00 97.6 F 52 L 17 134/75 90 L 08/13/20 22:07 97.9 F 50 L 16 127/65 90 L 08/13/20 19:30 18 08/13/20 17:50 97.5 F L 69 18 174/79 90 L 08/13/20 14:00 97.9 F 46 L 20 121/56 91 L 08/13/20 09:58 96.9 F L 52 L 16 143/67 95 Intake and Output 08/13/20 08/14/20 08/14/20 22:59 06:59 14:59 Other: Voiding Method Toilet # Voids 1 # Bowel Movements 0 Results 08/14/20 06:21 08/13/20 07:06 Cardiac Enzymes 08/13/20 Range/Units 07:06 AST 27 (13-35) U/L Coagulation 08/13/20 Range/Units 07:06 PT 10.5 (9.0-12.0) sec CBC 08/13/20 08/14/20 Range/Units 07:06 06:21 WBC 7.94 6.4 (4.50-10.00) X 10*3/uL RBC 3.94 L 4.21 (4.10-5.20) X 10*6/uL Hgb 11.1 L 12.3 (12.0-15.0) g/dL Hct 33.9 L 35.7 (37.2-46.3) % Plt Count 274 323 (140-440) X 10*3/uL Comprehensive Metabolic Panel 08/13/20 Range/Units 07:06 Sodium 141 (135-145) mmol/L Potassium 3.7 (3.5-5.5) mmol/L Chloride 108 (96-109) mmol/L Carbon Dioxide 25.1 (21.6-31.8) mmol/L BUN 23.0 (9.0-27.0) mg/dL Creatinine 0.6 (0.6-1.5) mg/dL Glucose 137 H (70-110) mg/dL Calcium 8.4 L (8.7-10.3) mg/dL AST 27 (13-35) U/L ALT 21 (8-44) U/L Alkaline Phosphatase 68 (41-126) U/L Total Protein 6.2 (6.2-8.2) g/dL Albumin 3.50 L (3.80-4.90) g/dL Current Medications Generic Name Dose Route Start Last Admin Trade Name Freq PRN Reason Stop Dose Admin Acetaminophen 650 mg 08/11/20 14:33 Acetaminophen Tab 325 Mg Tab PO Q6HR PRN Fever and/ or Pain Albuterol Sulfate 2 puff 08/11/20 14:33 08/13/20 11:34 Albuterol Hfa Inhaler INHALATION 2 puff RT-QID PRN Administration Shortness Of Breath Or Wheezing Ascorbic Acid 1,000 mg 08/11/20 14:45 08/14/20 08:14 Ascorbic Acid 500 Mg Tab PO 1,000 mg DAILY MILAN Administration Atorvastatin Calcium 20 mg 08/11/20 21:00 08/13/20 20:44 Atorvastatin 20 Mg Tab PO 20 mg HS MILAN Administration Cholecalciferol 100 mcg 08/11/20 14:45 08/14/20 08:14 Cholecalciferol 25 Mcg (1000 Iu) Tablet PO 100 mcg DAILY MILAN Administration Dexamethasone 6 mg 08/12/20 09:00 08/14/20 08:14 Dexamethasone 2 Mg Tab PO 6 mg DAILY MILAN Administration Dicyclomine HCl 20 mg 08/11/20 14:34 Dicyclomine 20 Mg Tab PO QID PRN STOMACH CRAMPS Enoxaparin Sodium 40 mg 08/12/20 09:00 08/14/20 08:14 Enoxaparin 40 Mg/0.4 Ml Syringe SQ 40 mg DAILY MILAN Administration Losartan Potassium 25 mg 08/12/20 09:00 08/14/20 08:25 Losartan 25 Mg Tab PO 25 mg DAILY MILAN Administration Melatonin 5 mg 08/11/20 21:00 08/13/20 20:44 Melatonin 5 Mg Tablet PO 5 mg HS MILAN Administration Meloxicam 15 mg 08/12/20 09:00 08/14/20 08:15 Meloxicam 7.5 Mg Tab PO 15 mg DAILY MILAN Administration Zinc Sulfate 220 mg 08/12/20 09:00 08/14/20 08:14 Zinc Sulfate 220 Mg Cap PO 220 mg DAILY MILAN Administration Intake and Output 08/13/20 08/14/20 08/14/20 22:59 06:59 14:59 Other: Voiding Method Toilet # Voids 1 # Bowel Movements 0 08/14/20 06:21 08/13/20 07:06
[2020-08-14 10:20] LABS: T4, Free (Free Thyroxine) 1.42 ng/dL (0.78-2.19)
--- NOTE | 2020-08-14 13:25 | P.PN ---
Subjective Progress Note Date: 08/14/20 Principal diagnosis: Syncopal episode, hypoxemia, COVID-19 pneumonia 70-year-old pleasant female patient with past medical history of hypertension, osteoarthritis, previous history of hysterectomy, and previous smoking history who came into the emergency department on 08/11/2020 after having fallen in the shower. Patient does not remember the event, she had apparently struck her head in the shower, but does not remember feeling lightheaded prior to getting into the shower. Denied any cough, or difficulty breathing. Denied any recent fever chills. Patient denied any head or neck pain. She reports not feeling well for 3 weeks prior to this incident, with symptoms of feeling weak, lack of appetite, but she did not test for COVID-19 and she did not suspect COVID-19 infection. No reported history of recent vomiting or diarrhea. She did have her first Pfizer vaccine around 3 weeks ago. Her chest x-ray in the emergency department showed suspected chronic interstitial lung disease with superimposed interstitial pneumonitis. Her COVID-19 PCR was positive, and CBC showed lymphopenia with lymphocyte count of 0.6, d-dimer was 1.59, electrolytes and renal profile were unremarkable, ferritin level was 1535, AST was 54, ALT and alkaline phosphatase were within normal limits, LDH was 425, troponin was less than 0.012, CRP was 4.1, influenza and RSV screens were negative. CTA chest showed no evidence of pulmonary embolism. And scattered interstitial infiltrate s. Patient is currently on 3 L of oxygen and the pulse ox between 89-92%, she is breathing comfortably, lung sounds revealed diffuse coarse crackles at bilateral bases, she's had no fevers, echocardiogram has been completed showing EF 50-55-60%, mild MR, trace TR, no pericardial effusion. She was started on Decadron 6 mg daily, prophylactic Lovenox. On 08/13/2020 patient seen in follow-up on medical surgical floor. Currently on 3 L of oxygen and the pulse ox of 95%, this can probably be further weaned, she denies any respiratory complaints, no shortness of breath or cough, her vital signs have been stable, lung sounds reveal some diffuse crackles at the bases, but no break complaints still at this time. No chest discomfort, no fever, no cough. No further syncopal episodes, patient remains on Decadron 6 blood gram daily, she is on vitamins, and prophylactic Lovenox. On 08/14/2020 patient seen in follow-up on medical surgical floor. She is breathing very comfortably, denies any acute distress, still requiring supplemental oxygen, currently on 2 L her pulse ox is 92%, room air pulse ox with exercise was 82% and as such patient does qualify for home oxygen. Otherwise still denies any significant pulmonary complaints, no cough, no chest discomfort, lung sounds do reveal coarse bilateral crackles, she remains on Decadron 6 mg daily, in addition to prophylactic anticoagulation, she's had no acute events overnight. Bili she did have episodes of bradycardia overnight, cardiology evaluated the patient. Echocardiogram revealed preserved LV function with EF of 55-60% with mild mitral regurgitation, patient was noted to be having episodes of sinus bradycardia with PACs at nighttime. Asymptomatic. Outpatient event monitoring was recommended from cardiology, TSH level was checked and was 0.464. Objective - Vital Signs Vital signs: Vital Signs Temp 97.7 F 08/14/20 05:30 Pulse 45 L 08/14/20 10:05 Resp 18 08/14/20 08:28 BP 135/69 08/14/20 05:30 Pulse Ox 90 L 08/14/20 10:05 Intake & Output 08/13/20 08/14/20 08/14/20 18:59 06:59 18:59 Intake Total 200 Balance 200 Intake: Oral 200 Other: Voiding Method Toilet Toilet # Voids 2 1 # Bowel Movements 0 - Exam GENERAL EXAM: Alert, very pleasant, 70-year-old white female on 2 L of oxygen a pulse ox of 92% comfortable in no apparent distress. HEAD: Normocephalic/atraumatic. EYES: Normal reaction of pupils, equal size. Conjunctiva pink, sclera white. NOSE: Clear with pink turbinates. THROAT: No erythema or exudates. NECK: No masses, no JVD, no thyroid enlargement, no adenopathy. CHEST: No chest wall deformity. Symmetrical expansion. LUNGS: Equal air entry with diffuse crackles CVS: Regular rate and rhythm, normal S1 and S2, no gallops, no murmurs, no rubs ABDOMEN: Soft, nontender. No hepatosplenomegaly, normal bowel sounds, no guarding or rigidity. EXTREMITIES: No clubbing, no edema, no cyanosis, 2+ pulses and upper and lower extremities. MUSCULOSKELETAL: Muscle strength and tone normal. SPINE: No scoliosis or deformity SKIN: No rashes CENTRAL NERVOUS SYSTEM: Alert and oriented -3. No focal deficits, tone is normal in all 4 extremities. PSYCHIATRIC: Alert and oriented -3. Appropriate affect. Intact judgment and insight. - Labs CBC & Chem 7: 08/14/20 06:21 08/13/20 07:06 Labs: Abnormal Lab Results - Last 24 Hours (Table) 08/13/20 08/14/20 Range/Units 07:06 06:21 Hemoglobin A1c 6.3 H (4.0-6.0) % TSH 0.464 L (0.465-4.680) mIU/L Assessment and Plan Plan: Assessment: #1. Acute hypoxic respiratory failure related to acute COVID-19 pneumonia, first onset of symptoms is 3 weeks ago. Outside the window for Remdesivir. Status post first dose of Pfizer vaccine 3 weeks ago #2. Syncopal episode at home #3. Elevated d-dimer, no evidence of pulmonary embolism on the CTA chest #4. Hypertension #5. Hyperlipidemia #6. Osteoarthritis #7. Former smoker Plan: No acute events overnight, still not complaining of any significant pulmonary symptoms Still requiring some supplemental oxygen at 2 L Patient did qualify for home oxygen as she desaturated to 82% with ambulation Vital signs have been stable, no fever or chills, she is breathing comfortably She is clear for discharge home from pulmonary perspective, she can finish outpatient course of oral Decadron 6 mg daily for a total of 10 days Outpatient follow-up with Dr. Bronson in the office I performed a history & physical examination of the patient and discussed their management with my nurse practitioner, Rebecca Andrade. I reviewed the nurse practitioner's note and agree with the documented findings and plan of care. Lung sounds are positive for diffuse wheezes throughout the lung hughes. The findings and the impression was discussed with the patient. I attest to the documentation by the nurse practitioner. Time with Patient: Less than 30
[2020-08-14 14:47] VITALS: BP 122/81; PULSE 92; RESP 16; TEMP 97.6
--- NOTE | 2020-08-14 19:50 | P.DS ---
Providers Date of admission: 08/11/20 12:16 Expected date of discharge: 08/14/20 Attending physician: Sruthi Cummings Consults: 08/11/20 12:09 Consult Physician Stat Consulting Provider: Krysten Sanderson Consult Reason/Comments: COVID pneumonia Do you want consulting provider notified?: Yes 08/13/20 08:14 Consult Physician Routine Consulting Provider: Umer Chen Consult Reason/Comments: bradycardia with pauses at night, syncopal episode at home Do you want consulting provider notified?: Yes Primary care physician: Stated None Hospital Course: Discharge Diagnosis: Syncope Acute hypoxic respiratory failure COVID-19 pneumonitis Nocturnal bradycardia Hospital Course: Patient is a 70-year-old female with arthritis, hypertension, and dyslipidemia who presented to the emergency room with a syncopal episode. She underwent an extensive evaluation in the emergency department. On arrival she was hypoxic to 88% on room air. Her vitals were otherwise unremarkable. Orthostatics were negative. Laboratory analysis that d-dimer of 1.59, ferritin 1535, COVID testing was positive. Chest x-ray showed suspected interstitial lung disease a super imposed interstitial pneumonitis. CT of the chest was negative for pulmonary embolism. Echocardiogram showed an ejection fraction of 55-60% with no significant valvular dysfunction. She was seen by pulmonary who agreed with continuing Decadron and Lovenox as well as vitamins. Outside the window for Remdesivir. She was noted to have bradycardia overnight on 08/13 with several pauses greater than 2.3 seconds and cardiology was consulted and recommended outpatient event monitoring secondary to her syncopal episode. She continued to improve. She is determined stable for discharge home. Follow-up: Dr. Chen in 1 week for event monitor, Dr. Bronson in one month, patient to establish with PCP, patient requiring home O2, she'll complete 10 days of dexamethasone, she will continue with albuterol and vitamin D. Patient seen and examined at bedside. Feeling well. Has been ambulating around the hallways. Denies any significant shortness of breath, lightheadedness, or dizziness. Vital signs reviewed and stable. General: non toxic, no distress, appears at stated age Derm: warm, dry Head: atraumatic, normocephalic, symmetric Eyes: EOMI, no lid lag, anicteric sclera Mouth: no lip lesion, mucus membranes moist Cardiovascular: S1S2 reg, no murmur, positive posterior tibial pulse bilateral, Lungs: CTA bilateral, no rhonchi, no rales , no accessory muscle use Abdominal: soft, nontender to palpation, no guarding, no appreciable organomegaly Ext: no gross muscle atrophy, no edema, no contractures Neuro: CN II-XI grossly intact, no focal neuro deficits Psych: Alert, oriented, appropriate affect A total of 35minutes of time were spent preparing this complex discharge summary . Patient Condition at Discharge: Stable Plan - Discharge Summary Discharge Rx Participant: No New Discharge Prescriptions: New Dexamethasone [Decadron] 6 mg PO DAILY #6 tablet Albuterol Inhaler [Ventolin Hfa Inhaler] 2 puff INHALATION RT-QID PRN #1 inhaler PRN Reason: Shortness Of Breath Or Wheezing Cholecalciferol [Vitamin D3 (25 Mcg = 1000 Iu)] 100 mcg PO DAILY #0 tablet Continue Cyclobenzaprine [Flexeril] 10 mg PO TID PRN PRN Reason: Muscle Spasm Losartan [Cozaar] 25 mg PO DAILY Atorvastatin [Lipitor] 20 mg PO HS Alendronate Sodium [Fosamax] 70 mg PO Q7D Dicyclomine [Bentyl] 20 mg PO QID PRN PRN Reason: STOMACH CRAMPS Meloxicam [Mobic] 15 mg PO DAILY Discharge Medication List Alendronate Sodium [Fosamax] 70 mg PO Q7D 08/11/20 [History] Atorvastatin [Lipitor] 20 mg PO HS 08/11/20 [History] Cyclobenzaprine [Flexeril] 10 mg PO TID PRN 08/11/20 [History] Dicyclomine [Bentyl] 20 mg PO QID PRN 08/11/20 [History] Losartan [Cozaar] 25 mg PO DAILY 08/11/20 [History] Meloxicam [Mobic] 15 mg PO DAILY 08/11/20 [History] Albuterol Inhaler [Ventolin Hfa Inhaler] 2 puff INHALATION RT-QID PRN #1 inhaler 08/14/20 [Rx] Cholecalciferol [Vitamin D3 (25 Mcg = 1000 Iu)] 100 mcg PO DAILY #0 tablet 08/14/20 [Rx] Dexamethasone [Decadron] 6 mg PO DAILY #6 tablet 08/14/20 [Rx] Follow up Appointment(s)/Referral(s): Umer Chen DO [STAFF PHYSICIAN] - 1 Week (office will call with appointment time) [employer] [NON-STAFF] - Nelson Bronson DO [Doctor of Osteopathic Medicine] - 09/13/20 1:45 pm None,Stated [Primary Care Provider] - 1-2 days Patient Instructions/Handouts: Coronavirus Disease 2019 (COVID-19) Activity/Diet/Wound Care/Special Instructions: Activity: as tolerated Diet: regular Discharge Disposition: HOME SELF-CARE
== END 2020-08-14 14:47 | disposition home or self-care (01) | DRG 177 ==
LOC: EC 10:13 → 4SSUR 12:16
PROVIDERS: ADMIT Internal Medicine; ATTEND Internal Medicine
DX: U07.1 COVID-19 (principal); J12.82 Pneumonia due to coronavirus disease 2019; J96.01 Acute respiratory failure with hypoxia; M81.0 Age-related osteoporosis without current pathological fracture; E78.5 Hyperlipidemia, unspecified; I10 Essential (primary) hypertension; I45.10 Unspecified right bundle-branch block; M19.90 Unspecified osteoarthritis, unspecified site; Z79.1 Long term (current) use of non-steroidal anti-inflammatories (NSAID); Z79.83 Long term (current) use of bisphosphonates; Z79.899 Other long term (current) drug therapy; Z87.891 Personal history of nicotine dependence; Z90.710 Acquired absence of both cervix and uterus; Z98.42 Cataract extraction status, left eye; Z98.41 Cataract extraction status, right eye; Z96.1 Presence of intraocular lens; Z96.652 Presence of left artificial knee joint; Z98.51 Tubal ligation status; K59.00 Constipation, unspecified; R00.1 Bradycardia, unspecified; R79.1 Abnormal coagulation profile; Z80.9 Family history of malignant neoplasm, unspecified
CPT/HCPCS: 36415; 71045; 71275; 80053; 82728; 83036; 83615; 83735; 84439; 84443; 84484; 85025; 85027; 85379; 85610; 85730; 86140; 87636; 93005; 93270; 93306; 94640; 94760; 96360; 99285